=== PATIENT | female | born 1975 | race Caucasian/White ===

== ENCOUNTER 2017-02-10 14:36 | Observation (INO) | payer MEDICAID | END 2017-02-10 21:00 | disposition home or self-care (01) | LOC: FLD 14:36 | PROVIDERS: ADMIT Advanced Practice Midwife; ATTEND Obstetrics & Gynecology | DX: O28.8 Other abnormal findings on antenatal screening of mother (principal); O09.513 Supervision of elderly primigravida, third trimester; Z3A.37 37 weeks gestation of pregnancy ==

== ENCOUNTER 2017-02-22 06:00 | Inpatient (IN) | payer MEDICAID ==
[2017-03-01] MEDS ORDERED: EPSOM SALT 454 GM TP PRN (06:40)
[2017-03-01] MEDS ORDERED: LR 1,000 ML IV PRN (06:40)
[2017-03-01] MEDS ORDERED: OLIVE OIL 118 ML BTL MISC PRN (06:40)
[2017-03-01] MEDS ORDERED: OXYTOCIN/RINGERS LACTATE 1,000 ML IV PRN (06:40)
[2017-03-01] MEDS ORDERED: TERBUTALINE SULFATE 1 MG/ML VIAL IV PRN (06:40)
[2017-03-01] MEDS ORDERED: OXYTOCIN 20 UNIT in LR 1,000 ML IV SCH (07:00)
[2017-03-01 07:02] LABS: % IMMATURE GRANULYOCYTES 0.9 % (0.0-1.1); ABSOLUTE IMMATURE GRANULOCYTES 0.08 10^3/uL (0.00-0.10); ADD DIFF? NO; ADD MORPH? NO; ADD SCAN? NO; ATYPICAL LYMPHOCYTE FLAG 10 (0-99); FRAGMENT RBC FLAG 0 (0-99); HEMATOCRIT 37.9 % (38.0-47.0); HEMOGLOBIN 13.2 g/dL (12.6-16.3); LEFT SHIFT FLG 0 (0-99); LIPEMIA HEMOLYSIS FLAG 90 (0-99); MEAN CELL HEMOGLOBIN CONCENTR. 34.8 g/dL (32.4-36.7); MEAN PLATELET VOLUME 12.5 fL (8.7-11.7); PLATELET CLUMPS FLAG 20 (0-99); PLATELET COUNT 161 10^3/uL (150-400); RED BLOOD CELL COUNT 4.12 10^6/uL (4.18-5.33); RED CELL DISTRIBUTION WIDTH 13.5 % (11.5-15.2)
[2017-03-01] MEDS ORDERED: OXYTOCIN/LR *STANDARD DOSE PROTOCOL IV SCH (07:30)
--- NOTE | 2017-03-01 07:42 | OBPROG ---
Labor Progress Note Assessment/Plan: Assessment:cat 1 fhr denies pain with the contractions exam 3-480/-1 cephalic iol with pitocin Plan:iol for ama 40/03/01/17 07:40 Subjective/Intrapartum Course: 03/01/17 07:38 Doing well. Eriberto difficulties. Irregular contractions. Coping well. Objective: 03/01/17 06:30 - SVE Dilation (cm): 3, 4 Effacement (%): 80 Station: -1 Membranes: Intact - Contraction Pattern Assessment Current Contraction Pattern: Irregular - FHR Assessment Antonio FHR (bpm): 135 FHR Pattern Variability: Moderate FHR Category: 1 - Physical Exam General Appearance: WD/WN, alert, no apparent distress Estimated Weight: 4729-1512 Respiratory: chest non-tender, lungs clear, normal breath sounds Cardiac/Chest: regular rate, rhythm Abdomen: normal bowel sounds Extremities: normal range of motion, Romulo's sign (negative bilaterally) DTR- Lower Extremities: Knee (R): 1+, Knee (L): 1+ Skin: normal color, warm/dry Neuro/Psych: no motor/sensory deficits, alert, normal mood/affect, oriented x 3 ICD10 Worksheet Patient Problems: Problems Problem Status Onset Decreased movement Acute
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
[2017-03-01] MEDS ORDERED: AMMONIA AROMATIC 1 EACH AMP IH ONE (09:54)
[2017-03-01] MEDS ORDERED: OLIVE OIL 118 ML BTL ONE (09:54)
[2017-03-01] MEDS ORDERED: LIDOCAINE 1% 300 MG/30 ML SDV ONE (09:54)
[2017-03-01] MEDS ORDERED: OXYTOCIN 10 UNIT/ML VIAL ONE (09:55)
[2017-03-01] MEDS ORDERED: TERBUTALINE SULFATE 1 MG/ML VIAL ONE (09:55)
[2017-03-01] MEDS ORDERED: MISOPROSTOL 200 MCG TAB ONE (09:55)
--- NOTE | 2017-03-01 12:58 | OBPROG ---
Labor Progress Note Assessment/Plan: Assessment:cat 1 fhr denies pain with the contractions exam 80/-1 arom clear fluid cephalic pitocin at 10 mu Plan:discussed poc with the patient agreed with poc arom clear fluid. Will change positions to allow for change in cervix 03/01/17 07:40 03/01/17 12:56 Subjective/Intrapartum Course: 03/01/17 07:38 Doing well. Eriberto difficulties. Irregular contractions. Coping well. Objective: 03/01/17 06:30 Patient ABO/Rh B POSITIVE 03/01/17 06:30 - SVE Dilation (cm): 4 Effacement (%): 80 Station: -1 Membranes: AROM Amniotic Fluid Color: Clear - Contraction Pattern Assessment Current Contraction Pattern: Irregular - FHR Assessment Antonio FHR (bpm): 125 FHR Pattern Variability: Moderate FHR Category: 1 - Procedures Non-surgical Procedures: Amniotomy - Physical Exam Estimated Weight: 3460-7235 Oxytocin Orders Assessment - Pre-Induction/Augmentation Assessment Gestational Age: 40 week(s) and 1 day(s) Estimated Weight: 4360-1705 ICD10 Worksheet Patient Problems: Problems Problem Status Onset Decreased movement Acute
[2017-03-01] MEDS ORDERED: fentaNYL 2MCG/ML/BUP 0.1% RTU 100 ML BAG EP ONE (17:10)
[2017-03-01] MEDS ORDERED: PHENYLEPHRINE HCL 100 MCG/ML SYR ONE (17:10)
[2017-03-01] MEDS ORDERED: BUPIVACAINE 0.25% 30 ML SDV ONE (17:10)
[2017-03-01] MEDS ORDERED: fentaNYL 100 MCG/2 ML INJ ONE (17:11)
[2017-03-01] MEDS ORDERED: CITRIC ACID/SODIUM CITRATE 30 ML UDCUP PO ONE (17:15)
--- NOTE | 2017-03-01 19:03 | OBPROG ---
Labor Progress Note Assessment/Plan: Assessment: 1700 cat 1 fhr feeling greater pain with contractions exam 6-7/80/-1 arom clear fluid cephalic pitocin at 10 mu tub for pain relief Plan:epidural for pain relief 03/01/17 07:40 03/01/17 12:56 03/01/17 19:03 Subjective/Intrapartum Course: 03/01/17 07:38 Doing well. Eriberto difficulties. Irregular contractions. Coping well. 03/01/17 1730 request for epidural for pain relief Objective: 03/01/17 06:30 Patient ABO/Rh B POSITIVE 03/01/17 06:30 - SVE Dilation (cm): 6, 7 Effacement (%): 100 Station: -1 Membranes: AROM Amniotic Fluid Color: Clear - Contraction Pattern Assessment Current Contraction Pattern: Regular - FHR Assessment Antonio FHR (bpm): 120 FHR Pattern Variability: Moderate FHR Category: 1 - Procedures Non-surgical Procedures: Amniotomy - Physical Exam Estimated Weight: 0663-5241 Oxytocin Orders Assessment - Pre-Induction/Augmentation Assessment Gestational Age: 40 week(s) and 1 day(s) Estimated Weight: 1964-8668 ICD10 Worksheet Patient Problems: Problems Problem Status Onset Decreased movement Acute
--- NOTE | 2017-03-01 19:10 | OBDEL ---
Info Type: Vaginal Presentation at Delivery: Vertex L&D Analgesia/Anesthesia Type: None GBS+: No Intrapartum Medications: Generic Name Dose Route Start Last Admin Trade Name Freq PRN Reason Stop Dose Admin Lactated Ringer's 1,000 mls @ 0 mls/hr 03/01/17 06:40 03/01/17 07:37 Lr IV 08/28/17 06:39 1,000 mls PRN PRN Administration SEE PROTOCOL CONDITIONS Protocol Per Protocol Oxytocin 30 unit/ Lactated 503 mls @ 0 mls/hr 03/01/17 07:30 03/01/17 07:38 Ringer's IV 08/28/17 07:29 503 mls CONT CHERRY Administration Protocol Per Protocol Discontinued Medications Generic Name Dose Route Start Last Admin Trade Name Freq PRN Reason Stop Dose Admin Citric Acid/Sodium Citrate 30 ml 03/01/17 17:15 03/01/17 17:16 Bicitra PO 03/01/17 17:16 30 ml ONCE ONE Administration - Hospital Course Intrapartum: iol for ama and 40.1 ga pitocin and arom clear fluid. Request for epidural unable to get epidural quick to 10 cm pushing and delivery. vaginal laceration repaired. Bilateral periurethrals repair of the right with 4.0 vicryl. 03/01/17 07:38 Doing well. Eriberto difficulties. Irregular contractions. Coping well. 03/01/17 1730 request for epidural for pain relief 03/01/17 19:07 Indications for Delivery: Postterm Favorable Cervix (ama 40.1 iol) Vaginal Delivery - Delivery Provider Delivery Physician/CNM: Ana Cristina Lee Proctoring Provider: Elizabeth Quinteros - Labor and Delivery Onset of Contractions Date: 03/01/17 Onset of Contractions Time: 07:42 Onset of Contractions Type: Induced Rupture of Membranes Date: 03/01/17 Rupture of Membranes Time: 12:49 Rupture of Membranes Type: Artificial Amniotic Fluid Color: Clear Dilation Complete Date: 03/01/17 Dilation Complete Time: 17:41 Placenta Delivery Date: 03/01/17 Placenta Delivery Time: 18:34 Total Hours of Labor: 10 Non-surgical Procedures: Amniotomy Laceration: 1st Degree Repair: 3-0, Vicryl, Other (Specify) (bilateral periurethrals repair of the right with 4.0 vicryl on sh) Vaginal Sponge Count Correct: Yes Vaginal Needle Count Correct: Yes Vaginal Sweep Performed: No EBL: 300 Delivery Events: Nuchal Cord - Medications Labor Augmentation/Induction Methods Used: Pitocin Labor Augmentation/Induction Indication: Other (Specify) (ama) Data Antonio Delivery Date: 03/01/17 Delivery Time: 18:34 EARNESTINE: 02/28/17 Gestational Age: 40 week(s) and 1 day(s) Sex of : Male Score (1 Min): 8 Score (5 Min): 9 ICD10 Worksheet Patient Problems: Problems Problem Status Onset Decreased movement Acute
[2017-03-01] MEDS ORDERED: SIMETHICONE 80 MG TAB CHEW PO PRN (19:13)
[2017-03-01] MEDS ORDERED: HYDROCORTISONE 0.5% CREAM TP PRN (19:13)
[2017-03-01] MEDS: IBUPROFEN 600 MG TAB PO PRN (19:20)
[2017-03-02] MEDS: IBUPROFEN 600 MG TAB PO PRN ×4 (01:23→19:28)
[2017-03-02] MEDS: ACETAMINOPHEN 325 MG TAB PO PRN ×2 (03:39→13:13)
[2017-03-02] MEDS: DOCUSATE SODIUM 100 MG CAP PO PRN ×2 (09:41→18:44)
--- NOTE | 2017-03-02 09:55 | OBPP ---
Progress Note Assessment/Plan: Assessment: ppd# 1 s/p breast feeding B+/IM neck pain Plan: routine post care heating pad to neck 03/02/17 09:52 Subjective/ Course: 03/02/17 09:54 patient is doing well except having neck pain. denies headache and changes in vision. working on breast feeding. normal lochia. denies headache and changes in vision. ambulating. passing gas. Objective: 03/02/17 06:00 Patient ABO/Rh B POSITIVE 03/01/17 06:30 Temp Pulse Resp BP Pulse Ox 37.0 C 82 16 116/74 95 03/01/17 23:15 03/01/17 23:15 03/01/17 23:15 03/01/17 23:15 03/01/17 23:15 Physical Exam - Physical Exam Neck: non-tender, full range of motion Respiratory: chest non-tender, lungs clear, normal breath sounds Cardiac/Chest: normal peripheral pulses, regular rate, rhythm Abdomen: normal bowel sounds, non-tender Extremities: normal range of motion, non-tender, normal inspection, normal capillary refill Skin: normal color, warm/dry Neuro/Psych: no motor/sensory deficits, alert, normal mood/affect, oriented x 3
[2017-03-02] MEDS: HYDROCODONE/APAP 5/325 TAB PO PRN ×3 (10:54→18:42)
[2017-03-02] MEDS ORDERED: CYCLOBENZAPRINE 10 MG TAB PO ONE (20:00)
[2017-03-03] MEDS: IBUPROFEN 600 MG TAB PO PRN ×4 (02:24→21:13)
[2017-03-03] MEDS: HYDROCODONE/APAP 5/325 TAB PO PRN ×4 (08:09→19:31)
[2017-03-03] MEDS: DOCUSATE SODIUM 100 MG CAP PO PRN ×2 (08:09→19:30)
[2017-03-03] MEDS ORDERED: CYCLOBENZAPRINE 10 MG TAB PO ONE (08:45)
[2017-03-03] MEDS ORDERED: COSYNTROPIN 0.25 MG/2 ML SYRINGE IVP ONE ×2 (14:15→14:45)
--- NOTE | 2017-03-03 14:49 | OBPP ---
Progress Note Assessment/Plan: Assessment: [id number] PPD#2 Headache/neck pain Plan: anesthesia consult/neurology consult cont norco/ibuprofen/heat therapy cont plan to d/c home tomorrow 03/03/17 14:21 Subjective/ Course: 03/02/17 09:54 patient is doing well except having neck pain. denies headache and changes in vision. working on breast feeding. normal lochia. denies headache and changes in vision. ambulating. passing gas. 03/03/17 14:23 Pt is doing ok- states she cannot sit up without excruciating pain in her neck and occipital area. She denies any visual changes or photophobia. She reports min cramping and bleeding. She is not able to ambulate due to severe neck pain. She has been side lying due to inability to sit up. Objective: 03/02/17 06:00 Patient ABO/Rh B POSITIVE 03/01/17 06:30 Temp Pulse Resp BP Pulse Ox 36.3 C 56 L 17 113/67 94 03/03/17 14:08 03/03/17 08:00 03/03/17 08:00 03/03/17 08:00 03/03/17 08:00 Uterine Position/Fundal Height: Umbilicus -1, Midline Uterine Tone: Firm Physical Exam - Physical Exam EENT: normal ENT inspection, pharynx normal Neck: non-tender, supple (unable to rotate neck completely) Respiratory: lungs clear, normal breath sounds, respiratory distress Cardiac/Chest: regular rate, rhythm Abdomen: non-tender, soft Extremities: normal range of motion, non-tender Skin: normal color, warm/dry Neuro/Psych: alert, normal mood/affect, oriented x 3
[2017-03-03] MEDS: CYCLOBENZAPRINE 10 MG TAB PO SCH (19:32)
--- NOTE | 2017-03-03 21:18 | PREANESOB ---
Obstetric Pre-Anesthesia Info - General Info Proposed Procedure: Labor and delivery with pitocin. : 1 Para: 1 WBD: 40 - Info Status: Full Term Monitors: External FHR Baseline (bpm): 135 FHR Pattern: Reassuring - Labor Status Cervical Dilation per last OB SVE: 6, 7 Station per last OB SVE: -1 Rupture of Membranes Time: 12:49 Pitocin: In Use Indications for Labor Analgesia: Induction of Labor (Advanced maternal age.), Pain Control Labor Epidural: Proposed Anesthesia ROS: History of HSV, HPV, and LEEP. Allergies/Adverse Reactions: Allergy/AdvReac Type Severity Reaction Status Date / Time No Allergies Allergy Verified 02/10/17 15:10 Home Medications: Medication Instructions Recorded Iron 1 tab PO DAILY 02/10/17 Acyclovir [Zovirax 400 mg (*)] 400 mg PO BID 03/01/17 1 tab PO DAILY 03/01/17 Visit Medications: Generic Name Dose Route Start Last Admin Trade Name Freq PRN Reason Stop Dose Admin Acetaminophen 325 - 650 mg 03/01/17 19:13 03/02/17 13:13 Tylenol PO 08/28/17 19:12 325 mg Q4HRS PRN Administration Pain, Mild Hydrocodone Bitart/Acetaminophen 1 - 2 tab 03/01/17 19:13 03/03/17 19:31 [place] 5/325 PO 03/11/17 19:12 2 tab Q4HRS PRN Administration Pain, Moderate Cyclobenzaprine HCl 5 mg 03/03/17 21:00 03/03/17 19:32 Flexeril PO 08/30/17 20:59 5 mg BID CHERRY Administration Docusate Sodium 100 mg 03/01/17 19:13 03/03/17 19:30 Colace PO 08/28/17 19:12 100 mg BID PRN Administration Constipation Hydrocortisone 1 shayy 03/01/17 19:13 Hydrocortisone 0.5% TP 08/28/17 19:12 QID PRN Hemorrhoids Lactated Ringer's 1,000 mls @ 0 mls/hr 03/01/17 06:40 03/01/17 07:37 Lr IV 08/28/17 06:39 1,000 mls PRN PRN Administration SEE PROTOCOL CONDITIONS Protocol Per Protocol Oxytocin 30 unit/ Lactated 503 mls @ 0 mls/hr 03/01/17 07:30 03/01/17 07:38 Ringer's IV 08/28/17 07:29 503 mls CONT CHERRY Administration Protocol Per Protocol Ibuprofen 600 mg 03/01/17 06:40 03/03/17 21:13 Motrin PO 08/28/17 06:39 600 mg Q6HRS PRN Administration post , inflammation Magnesium Sulfate 454 gm 03/01/17 06:40 Epsom Salt TP 08/28/17 06:39 Q1H PRN perineal discomfort [place] Oil 118 ml 03/01/17 06:40 Sweet Oil MISC 08/28/17 06:39 ONCE PRN perineal massage Simethicone 80 mg 03/01/17 19:13 Mylicon PO 08/28/17 19:12 ACHS PRN Gas Terbutaline Sulfate 0.25 mg 03/01/17 06:40 Brethine IV 08/28/17 06:39 ONCE PRN Tachysystole Discontinued Medications Generic Name Dose Route Start Last Admin Trade Name Freq PRN Reason Stop Dose Admin Ammonia (Aromatic Spirit) Confirm 03/01/17 09:54 Ammonia Aromatic Administered 03/01/17 09:55 Dose 1 each IH .STK-MED ONE Bupivacaine HCl Confirm 03/01/17 17:10 Sensorcaine 0.25% Sdv Administered 03/01/17 17:11 Dose 30 ml .ROUTE .STK-MED ONE Citric Acid/Sodium Citrate 30 ml 03/01/17 17:15 03/01/17 17:16 Bicitra PO 03/01/17 17:16 30 ml ONCE ONE Administration Cosyntropin 1 mg 03/03/17 14:45 03/03/17 15:08 Cortrosyn Syringe IVP 03/03/17 14:46 1 mg ONCE ONE Administration Cyclobenzaprine HCl 5 mg 03/02/17 20:00 03/03/17 10:31 Flexeril PO 03/02/17 20:01 Not Given ONCE ONE Cyclobenzaprine HCl 5 mg 03/03/17 08:45 03/03/17 09:04 Flexeril PO 03/03/17 08:46 5 mg ONCE ONE Administration Ephedrine Sulfate Confirm 03/01/17 09:55 Ephedrine Sulfate Administered 03/01/17 09:56 Dose 50 mg .ROUTE .STK-MED ONE Fentanyl Confirm 03/01/17 17:11 Sublimaze Administered 03/01/17 17:12 Dose 100 mcg .ROUTE .STK-MED ONE Fentanyl/Bupivacaine HCl Confirm 03/01/17 17:10 Fentanyl/Bupivacaine/Ns 2 Mcg/Ml 0.1% (Premix Administered 03/01/17 17:11 Dose 100 ml EP .STK-MED ONE Oxytocin/Lactated Ringer's 1,000 mls @ 150 mls/hr 03/01/17 06:40 Pitocin 20 Units/Lr (Premix) IV PRN PRN Post- bleeding Oxytocin 20 unit/ Lactated 1,002 mls @ 150 mls/hr 03/01/17 07:00 03/01/17 23: 27 Ringer's IV 03/01/17 13:41 Not Given CONT CHERRY Lidocaine HCl Confirm 03/01/17 09:54 Lidocaine Hcl 1% Administered 03/01/17 09:55 Dose 300 mg .ROUTE .STK-MED ONE Misoprostol Confirm 03/01/17 09:55 Cytotec Administered 03/01/17 09:56 Dose 1,000 mcg .ROUTE .STK-MED ONE [place] Oil Confirm 03/01/17 09:54 Sweet Oil Administered 03/01/17 09:55 Dose 118 ml .ROUTE .STK-MED ONE Oxytocin Confirm 03/01/17 09:55 Pitocin Administered 03/01/17 09:56 Dose 40 unit .ROUTE .STK-MED ONE Phenylephrine HCl Confirm 03/01/17 17:10 Neosynephrine Administered 03/01/17 17:11 Dose 1,000 mcg .ROUTE .STK-MED ONE Terbutaline Sulfate Confirm 03/01/17 09:55 Brethine Administered 03/01/17 09:56 Dose 1 mg .ROUTE .STK-MED ONE - Anesthesia History Response to Local Anesthetics: Normal Anesthesia & Operative History: No Prior Problems Family Anesthesia History: Not Applicable - Social History Substance Use/Abuse: Denies - Focused Exam Latest Vital Signs (Nursing): Temp Pulse Resp BP Pulse Ox 37.2 C 61 14 106/65 94 03/03/17 16:36 03/03/17 16:36 03/03/17 16:36 03/03/17 16:36 03/03/17 16:36 Blood Pressure: 114/77 Heart Rate: 71 Respiratory Rate: 14 Height/Weight (Nursing): Height 175.26 cm Weight 85.729 kg Airway: No abnormalities Physical Exam: Within normal limits. ASA Status: II Labs: 03/02/17 06:00 Patient ABO/Rh B POSITIVE 03/01/17 06:30 - Plan Anesthetic Plan: CSE Consent Signed and on Chart: No Patient/Guardian Understands and Agrees to Plan: Yes Urgent/Emergent Case: Niru melendez completed preop but documented later for safe timely pt care (Patient extremely uncomfortable. Verbal consent obtained prior to procedure.)
--- NOTE | 2017-03-03 21:50 | POSTANESTH ---
Post Anesthetic Evaluation Cardiovascular Status: Normal, Stable Respiratory Status: Normal, Stable Level of Consciousness/Mental Status: Can Participate in Eval Pain Control: Adequate, Prn Tx Ordered Nausea/Vomiting Control: Adequate, Prn Tx Ordered Complications Possibly Related to Anesthesia: None Noted (CSE attempted at L34. Unable to locate epidural space by loss of resistance. No CSF. Nurse manager labor relations advised that patient was too close to delivery to continue and CSE was abandoned. This patient complained of positional neck pain when upright ( particularly standing) after approximately 24 hours. Her neurologic exam was normal and the possibility of PDPH was considered. The neck pain was still present at 48 hrs and she was given 1mg of cosyntropin at 1500 on 03/03/17. Since that time she has experienced some improvement but will consider blood patch in the future if neck pain persists.)
[2017-03-04] MEDS: IBUPROFEN 600 MG TAB PO PRN ×3 (03:41→15:11)
[2017-03-04] MEDS: CYCLOBENZAPRINE 10 MG TAB PO SCH (08:32)
[2017-03-04] MEDS: DOCUSATE SODIUM 100 MG CAP PO PRN (08:32)
[2017-03-04] MEDS: HYDROCODONE/APAP 5/325 TAB PO PRN ×3 (08:33→12:56)
[2017-03-04 09:32] VITALS: BP 105/58; PULSE 64; RESP 17; TEMP 97.1; O2SAT 93
--- NOTE | 2017-03-04 13:55 | OBPP ---
Progress Note Assessment/Plan: Assessment: PPD 3 s/p severe FRANK c/w spinal FRANK - has seen Dr Lemus currently on [place] and flexeril with little help Plan: D/C home, will f/u for FRANK management prn 03/04/17 13:52 Subjective/ Course: 03/02/17 09:54 patient is doing well except having neck pain. denies headache and changes in vision. working on breast feeding. normal lochia. denies headache and changes in vision. ambulating. passing gas. 03/03/17 14:23 Pt is doing ok- states she cannot sit up without excruciating pain in her neck and occipital area. She denies any visual changes or photophobia. She reports min cramping and bleeding. She is not able to ambulate due to severe neck pain. She has been side lying due to inability to sit up. Objective: 03/02/17 06:00 Patient ABO/Rh B POSITIVE 03/01/17 06:30 Temp Pulse Resp BP Pulse Ox 36.2 C 64 17 105/58 L 93 03/04/17 09:00 03/04/17 09:00 03/04/17 09:00 03/04/17 09:00 03/04/17 09:00 Uterine Position/Fundal Height: Umbilicus -1 Uterine Tone: Firm Physical Exam - Physical Exam Neck: full range of motion, supple Abdomen: non-tender, soft, other (FF at umb -1) Extremities: non-tender, pedal edema (minimal) Skin: normal color, warm/dry Neuro/Psych: alert, normal mood/affect (tearful due to FRANK pain after getting up for bathroom)
--- NOTE | 2017-03-04 14:04 | OBGCSDC ---
General Delivery Information - General Info : 1 Para: 1 Abortions: 0 Type: Vaginal L&D Analgesia/Anesthesia Type: Epidural Admission Date: 03/01/17 Labs: Patient ABO/Rh B POSITIVE 03/01/17 06:30 Hct 35.1 % (38.0-47.0) L 03/02/17 06:00 - Hospital Course Intrapartum: iol for ama and 40.1 ga pitocin and arom clear fluid. Request for epidural unable to get epidural quick to 10 cm pushing and delivery. vaginal laceration repaired. Bilateral periurethrals repair of the right with 4.0 vicryl. 03/01/17 07:38 Doing well. Eriberto difficulties. Irregular contractions. Coping well. 03/01/17 1730 request for epidural for pain relief 03/01/17 19:07 : 03/02/17 09:54 patient is doing well except having neck pain. denies headache and changes in vision. working on breast feeding. normal lochia. denies headache and changes in vision. ambulating. passing gas. 03/03/17 14:23 Pt is doing ok- states she cannot sit up without excruciating pain in her neck and occipital area. She denies any visual changes or photophobia. She reports min cramping and bleeding. She is not able to ambulate due to severe neck pain. She has been side lying due to inability to sit up. 03/04/17 14:06 Pt tearful due to intense FRANK wlking to BR. 11/10 when up, 3/10 when lying down. Baby is BF well. bld is light. urinating fine. Not sure if [place] is even helping - using 2 q 4 hrs and flexeril. Warned about constipation Vaginal - Delivery Provider Delivery Physician/CNM: Ana Cristina Lee - Diagnosis Labor: Induced Rupture of Membranes Type: Artificial Amniotic Fluid Color: Clear Laceration: 1st Degree Repair: 3-0, Vicryl, Other (Specify) (bilateral periurethrals repair of the right with 4.0 vicryl on sh) Delivery Events: Nuchal Cord - Procedures Non-surgical Procedures: Amniotomy - Delivery Non-surgical Procedures: Amniotomy EBL: 300 [place] Data Antonio Delivery Date: 03/01/17 Delivery Time: 18:34 EARNESTINE: 02/28/17 Gestational Age: 40 week(s) and 4 day(s) Sex of : Male Weight (gm): 3884 g Score (1 Min): 8 Score (5 Min): 9 Discharge Information - Discharge Information Prescriptions: Hydrocodone/APAP 5/325 [[place] 5/325 (*)] 1 - 2 tab PO Q4HRS PRN #20 tab PRN Reason: Pain, Moderate Cyclobenzaprine [Flexeril 10 MG (*)] 5 mg PO BID #20 tab Condition: Good Instruction/Follow Up: See Instruction Sheet, Four Weeks, Six Weeks
[2017-03-04] MEDS ORDERED: LIDOCAINE 1% 2 ML INJ ONE (14:51)
--- NOTE | 2017-03-04 17:12 | POSTANESTH ---
Post Anesthetic Evaluation Cardiovascular Status: Normal, Stable, Similar to Pre-Op Cond Respiratory Status: Normal, Stable, Similar to Pre-op Cond. Level of Consciousness/Mental Status: Can Participate in Eval, Alert and Oriented Pain Control: Adequate, Prn Tx Ordered Nausea/Vomiting Control: Adequate, Prn Tx Ordered Complications Possibly Related to Anesthesia: None Noted (Patient brought to Labor and delivery PACU for blood patch at 1600 on 03/04/17. Positioned left side down, lumbar region prepped with iodine, draped, and the L45 space anesthetized with lidocaine. A 17ga Tuohy needle was positioned in the epidural space using loss of resistance. 30ml of blood was drawn from the patient's left anticubital vein and injected into the epidural space. The puncture site was cvered with a band aid and the patient returned to her room having tolerated the procedure well. Her headache is markedly improved and is going home this afternoon.)
== END 2017-03-04 17:30 | disposition home or self-care (01) | DRG 775 ==
LOC: FLD 03-01 06:27 → FOB 03-01 21:00
PROVIDERS: ADMIT Obstetrics & Gynecology; ATTEND Obstetrics & Gynecology
PROC: 0UQMXZZ Repair Vulva, External Approach (ICD-10-PCS; principal; 2017-03-01)
PROC: 10907ZC Drainage of Amniotic Fluid, Therapeutic from Products of Conception, Via Natural or Artificial Opening (ICD-10-PCS; principal; 2017-03-01)
PROC: 3E033VJ Introduction of Other Hormone into Peripheral Vein, Percutaneous Approach (ICD-10-PCS; principal; 2017-03-01)
PROC: 10E0XZZ Delivery of Products of Conception, External Approach (ICD-10-PCS; principal; 2017-03-01)
PROC: 3E0S3GC Introduction of Other Therapeutic Substance into Epidural Space, Percutaneous Approach (ICD-10-PCS; 2017-03-04)
DX: O48.0 Post-term pregnancy (principal); O71.82 Other specified trauma to perineum and vulva; O69.81X0 Labor and delivery complicated by cord around neck, without compression, not applicable or unspecified; O89.4 Spinal and epidural anesthesia-induced headache during the puerperium; Z3A.40 40 weeks gestation of pregnancy; Z37.0 Single live birth
CPT/HCPCS: J0834; J2370; J3010; J3105